=== PATIENT | male | born 1940 | race Caucasian/White ===

== ENCOUNTER 2018-11-01 16:13 | Outpatient (RCR) | payer MEDICARE, OTHER ==
--- NOTE | 2018-08-23 09:29 | PT INITIAL EVALUATION ---
MEDICAL DIAGNOSIS: R29.898 TREATMENT DIAGNOSIS: same DATE OF ONSET: 06/07/18 SUBJECTIVE: Adalberto Marx presents to physical therapy with complaints of B knee pain and decreased muscle strength. He reports that he has always been a sedentary individual and does not enjoy exercise. He reports that it is difficult for him to get out of his chair or out of his car due to his muscle weakness. He reports that his R knee is worse than his L knee. His current pain on his R knee is 0/10 and is current pain on his L knee is 2/10. He reports that the most severe pain that he feels on the R is 6-7/10 and the most severe pain that he feels on his L knee is 5-6/10. He reports that he has been getting injections every 3 months for his B knee OA to improve support. Furthermore, he reports that he is terrified of falling and has not falling in a few years. Pain location is joint lines B and described as achy. Pain scale is 2 on a ten point pain scale. REHAB PROBLEM LIST: Increased Pain Decreased ROM Decreased Strength Decreased Endurance Decreased Balance Decreased Function Decreased ADL's Decreased Mobility Decreased Gait PREVIOUS MEDICAL HISTORY: See EMR OCCUPATION: Retired OBJECTIVE: Posture: He demonstrates forward head, increased thoracic kyphosis, B rounded shoulders, and increased lumbar lordosis. ROM: B LE's: WFL's Strength: B hip flexion, abduction, extension: 4-/5. B hip adduction: 4+/5. B knee flexion and extension: 4/5. B ankle DF and PF: 4/5 Palpation: TTP: B joint lines [id number] Special Tests: 6 minute walk test: 770 feet Mobility: Modified independent Gait: He demonstrated the following gait mechanics with cane: increased base of support, decreased B step lengths, decreased B step clearance, inconsistent heel strike, increased veering from L to R side of track, decreased B UE swing, decreased pelvic mobility, and decreased velocity. Balance: Will assess in the future, but has functional balance limitations that we will address ASSESSMENT: Adalberto will benefit from skilled physical therapy addressing the listed impairments to improve function and QOL. Short Term Goals 6 weeks: Pt will be able to transfer from any chair from sitting to/from standing independently to improve function and QOL. 6 weeks: Pt will demonstrate a significant improvement in B LE strength from baseline to 4+/5 or greater. 6 weeks: Pt will be able to ambulate for 30 minutes most days of the week to improve function and QOL. Patient's Goals improve strength PLAN: Patient to be seen for Manual Therapy/STM/MET Range of Motion Work Hardening/Cond Stretching Neuromuscular Re-ed Closed Chain Program Posture/Body mechanics Gait Trg/Balance Trg Home Exercise Program Therapeutic Activities 2x/Week for 6 Weeks If you have any questions, comments, or concerns about this report or plan, please contact me at . Thank you, Rojas Paulino, PT, DPT MTDD
--- NOTE | 2018-09-28 09:19 | PT PLAN OF CARE ---
Physician: Dariusz Brady MD Patient is being seen: 2x/week Therapist: Rojas Paulino, PT, DPT Medical Diagnosis: R29.898 Treatment Diagnosis: same Date of Onset: 06/07/18 Date of Initial Evaluation: 08/22/18 Date patient was last seen: 09/26/18 Number of treatments: 10 Number of cancellations/No shows: 1 INTERVENTIONS: Manual Therapy/STM/MET Range of Motion Work Hardening/Cond Stretching Neuromuscular Re-ed Closed Chain Program Posture/Body mechanics Gait Trg/Balance Trg Home Exercise Program Therapeutic Activities GOALS: 6 weeks: Pt will be able to transfer from any chair from sitting to/from standing independently to improve function and QOL. 6 weeks: Pt will demonstrate a significant improvement in B LE strength from baseline to 4+/5 or greater. 6 weeks: Pt will be able to ambulate for 30 minutes most days of the week to improve function and QOL. PATIENT'S GOAL: improve strength Status of Patient's Goals: Progressing Patient Compliance: Good Prognosis: Good Reasons for continuing therapy: This is a progress note for Adalberto Marx. He reports that he continues to have difficulty getting out of his vehicle. He reports that he feels like it is a little bit easier to get out of his chair than it was prior to coming to PT. Otherwise, he feels like his aches and pains have not changed from the better or the worse. He reports that he is not doing much of his home exercise program at home. He demonstrated significant improvements in his 6 minute walk test, minimal gains in his B LE strength and increased gait mechanics (increased velocity and no LOB this session, which is an improvement). We will continue to address his strength, endurance, balance (static and functional), and assist him to return closer to his prior level of function while encouraging participation in his home exercise program. Posture: He demonstrates forward head, increased thoracic kyphosis, B rounded shoulders, and increased lumbar lordosis. ROM: B LE's: WFL's Strength: B hip flexion, abduction, extension: 4/5. B hip adduction: 4+/5. B knee flexion and extension: 4/5. B ankle DF and PF: 4/5 Palpation: TTP: B joint lines [id number] Special Tests: 6 minute walk test: 983 feet, able to stand up independently without the use of his hands from 21 inch surface (at initial examination it was 24 inch height) Mobility: Modified independent Physician Signature DATE: ___ If you have any questions, please contact me at [phone]. Thank you, Rojas Paulino, PT, DPT MTDD
[~2018-11-01 16:13] MED LIST: ACET-1718 PO; ACET-3017 PO; ALEN70TA42 PO; ALL300 PO; ALLEGRA PO; ALLO-2 PO; AMLO-110 PO; AMLO-125 PO; ASPI-1471 PO; BENA20TA64 PO; CALC1TAB32 PO; CELE-1 PO; CHLO120L4 TP; CHOL200038 PO; CHOL500026 PO; DIA5 PO; EZET10TA41 PO; EZET1TAB61 PO; FEXO1TAB39 PO; FEXO1TAB60 PO; FISH1CAP15 PO; FLU IM; FLU180SY11 IM; FLU45SYR17 IM; FLU45SYR25 IM ONLY; FLU60SYR30 IM ONLY; FLUO20TA2 PO; FLUO40CA76 PO; GLUC15002 PO; LANS30CA63 PO; LANS30CA70 PO; LANS30TA12 PO; LEV100 PO; LEVO100T95 PO; LEVO88TA43 PO; LIDO5JEL7 TOP; LOR5/325 PO; LOSA50TA67 PO; LOSA50TA68 PO; META800T18 PO; METH4TAB57 PO; MULT-885 PO; OXYGENHOME INH; PENI-24 PO; PER PO; PNEU0.5D3 IM; PRO500 PO; PROB500T31 PO; SIMV-49 PO; SIMV-54 PO; TRIA15CR40 TP; VERA180T57 PO; VERA240T95 PO; VIT-9 PO
== END 2018-11-01 18:00 | disposition home or self-care (01) ==
LOC: PT 16:13
PROVIDERS: ATTEND Family Medicine
DX: R29.898 Other symptoms and signs involving the musculoskeletal system (principal); M17.0 Bilateral primary osteoarthritis of knee; M62.81 Muscle weakness (generalized)
CPT/HCPCS: 97162